=== PATIENT | female | born 1995 | race Hispanic/Latino ===

== ENCOUNTER 2020-11-15 21:55 | Emergency (ER) | payer OTHER ==
[~2020-11-15] VITALS: Ht 160 cm; Wt 92.6 kg
[2020-11-15 21:56] VITALS: BP 109/68
== END 2020-11-15 22:59 | disposition admitted as inpatient to this hospital (09) ==
LOC: M ED 21:55
DX: O9A.213 Injury, poisoning and certain other consequences of external causes complicating pregnancy, third trimester (principal); M54.50 Low back pain, unspecified; R10.2 Pelvic and perineal pain; W10.8XXA Fall (on) (from) other stairs and steps, initial encounter; Y92.009 Unspecified place in unspecified non-institutional (private) residence as the place of occurrence of the external cause; Y93.9 Activity, unspecified; Y99.9 Unspecified external cause status

== ENCOUNTER 2020-11-15 23:04 | Outpatient (CLI) | payer OTHER ==
[2020-11-15 23:37] VITALS: BP 100/62
[2020-11-16 00:17] LABS: HEMOGLOBIN 10.5 g/dl (12.0-15.5); MEAN CORPUSCULAR HEMOGLOBIN 25.4 pg (27.0-33.0); MEAN CORPUSCULAR HGB CONC 31.8 g/dl (32.0-36.5); MEAN CORPUSCULAR VOLUME 79.7 fl (80.0-96.0); PLATELET COUNT, AUTOMATED 303 10^3/uL (150-450); RED BLOOD COUNT 4.14 10^6/uL (4.00-5.40); WHITE BLOOD COUNT 8.4 10^3/uL (4.0-10.0)
--- NOTE | 2020-11-16 01:00 | IPNPDOC ---
Text Note Date of Service The patient was seen on 11/16/20. NOTE Vital Signs Label Value Date Time Patient Temperature 96.7 degrees F 11/15/202336 Temperature Source Temporal 11/15/202336 Pulse 83 11/15/202336 Respiratory Rate 18 bpm 11/15/202336 Blood Pressure Assessment 100/62 (75) 11/15/202336 Source Automatic Cuff (NIBP) Item Value Date Time White Blood Count 8.4 10^3/uL 11/15/20 2344 Red Blood Count 4.14 10^6/uL 11/15/20 2344 Hemoglobin 10.5 g/dl L 11/15/20 2344 Hematocrit 33.0 % L 11/15/20 2344 Mean Corpuscular Volume 79.7 fl L 11/15/20 2344 Mean Corpuscular Hemoglobin 25.4 pg L 11/15/20 2344 Mean Corpuscular Hemoglobin Concent 31.8 g/dl L 11/15/20 2344 Red Cell Distribution Width 13.2 % 11/15/20 2344 Platelet Count 303 10^3/uL 11/15/20 2344 11/16/2020 25 YO LMP 04/22/20 EDC BY EDC 01/27/21 AT 29 .5 WEEKS FELL DOWNSTAIRS CAME TO TRIAGE 5 HOURS LATER NO VAGINAL BLEEDING OR LOSS OF FLUID DECREASED MOVEMENT WHEN GOING TO BED. PAST HISTORY 11/01/2013 37 WEEKS 5LBS 2 OZ PTL AND DELIVERY MALE 05/13/201535 WEEKS 5 LBS 6 OZ PTL PTD FEMALE 08/01/2017 39 .3 WEEKS FEMALE 6 LBS 4 OZ PPROM PP DEPRESSION RISK FACTORS PP DEPRESSION BMI 37.O HX PTL X2 ASSESSMENT NO ACUTE DISTRESS SOFT ABDOMEN 4 QUADRANT BOWEL SOUNDS VERTEX ACTIVE FETUS CATEGORY 1 STRIP. US VERTEX CARDIAC ACTIVITY NOTED 4 LIMB MOVEMENT PLACENTA ANTERIOR 4 QUADRANT DOMINGA 13.6 SMALLEST POCKET 2.85 CM VERTICAL PLAN CBC KB PRECAUTIONS GIVEN DISCHARGE INSTRUCTIONS MAINTAIN APPOINTMENT AND CONTINUE MICHELLE . DISCHARGED UNDELIVERED VS,Fishbone, I+O VS, Fishbone, I+O Laboratory Tests 11/15/20 23:44 Casper Hudson MD Nov 16, 2020 00:55
== END 2020-11-16 00:50 | disposition home or self-care (01) ==
LOC: M LDO 23:04
PROVIDERS: ATTEND Obstetrics & Gynecology
DX: O9A.213 Injury, poisoning and certain other consequences of external causes complicating pregnancy, third trimester (principal); Z3A.29 29 weeks gestation of pregnancy; M54.50 Low back pain, unspecified; R10.2 Pelvic and perineal pain; W10.8XXA Fall (on) (from) other stairs and steps, initial encounter; Y92.009 Unspecified place in unspecified non-institutional (private) residence as the place of occurrence of the external cause; Y93.9 Activity, unspecified; Y99.9 Unspecified external cause status; O99.343 Other mental disorders complicating pregnancy, third trimester; F32.9 Major depressive disorder, single episode, unspecified; O99.213 Obesity complicating pregnancy, third trimester; E66.9 Obesity, unspecified; O26.893 Other specified pregnancy related conditions, third trimester
CPT/HCPCS: 36415; 59025; 85027; 85460; 99281; G0378; G0463

== ENCOUNTER 2020-12-14 17:27 | Outpatient (CLI) | payer OTHER ==
[~2020-12-14] VITALS: Ht 160 cm; Wt 92.3 kg
[2020-12-14 17:49] VITALS: BP 109/66
[2020-12-14] MEDS ORDERED: PRENTAB9 PO (18:26)
[2020-12-14] MEDS ORDERED: HOME MED LIST COMPLETE! XX SCH (18:30)
[2020-12-14] MEDS ORDERED: LR 1,000 ML IV ONE (19:20)
[2020-12-14] MEDS ORDERED: MAGNESIUM *L&D* 4GM/100ML BAG (40MG/ML) IV ONE (19:20)
--- NOTE | 2020-12-14 20:09 | IPNPDOC ---
Text Note Date of Service The patient was seen on 12/14/20. NOTE Vital Signs Label Value Date Time Patient Temperature 97.6 degrees F 12/14/201748 Temperature Source Temporal 12/14/201748 Pulse 83 12/14/201748 Respiratory Rate 18 bpm 12/14/201748 Blood Pressure Assessment 109/66 (80) 12/14/201748 Source Automatic Cuff (NIBP) Bedside Pulse Oximetry 98 % 12/14/201748 Item Value Date Time Oxygen Delivery Method Room Air 12/14/20174812/14/2020 25 y.o LMP 04/22/2020 WITH EDC 01/27/2021 BY EARLY US 11.6 WEEKS DONE 02/03/2021 COMES TO TRIAGE WITH COMPLAINTS X 24 HOURS CONTRACTIONS ARRIVED 3 HOURS AFTER TRIAGE CALL NO VAGINAL BLEEDING NO BLEEDING. CONTRACTIONS ERRATIC NOT PAINFUL . AT 33.3 WEEKS PAST HISTORY 11/01/2013 36 WEEKS MALE 5 LBS 2 OZ 07/2015 35 WEEKS 5 LBS 6 OZ FEMALE 08/01/2017 40 WEEKS PROM 6 LBS 4 OZ RISK FACTORS LATE ENTRY TO CARE 22 WEEKS PTD X 2 BMI 37.0 DEPRESSION EXAMINATION NO DISTRESS MONITOR SHOWS ERRATIC CONTRACTIONS MILD IN NATURE . PATIENT ON WEEKLY MICHELLE FROM 16 WEEKS ONWARD. CONSENTED STERILE EXAMINATION CERVIX CLOSED NO POOLING NO DISCHARGE NO BLEEDING FFN AND GBS DONE LATERAL ENRIQUEZ COLLAPSED TO MIDLINE . ULTRASOUND CONSENTED VERTEX LIMB MOVEMENT SPONTANOUS RESPIRATIONS DOMINGA X 3 POCKETS 3.57 CM, 3.71 CM, 3.85 CM TOTAL 11 .13 CM TRANS LABIAL CERVIX 2.52 CM NO FUNNELING PLAN IV HYDRATE MGSO4 NEURO STEROIDS FFN CBC BMP PATIENT EXPRESSED UNDERSTANDING VS,Fishbone, I+O VS, Fishbone, I+O Vital Signs Date Time Temp Pulse Resp B/P (MAP) Pulse Ox O2 Delivery O2 Flow Rate FiO2 12/14/20 17:49 97.6 83 18 109/66 (80) 98 Room Air Casper Hudson MD Dec 14, 2020 19:59
[2020-12-14 20:14] LABS: HEMATOCRIT 32.2 % (36.0-47.0); HEMOGLOBIN 10.2 g/dl (12.0-15.5); MEAN CORPUSCULAR HGB CONC 31.7 g/dl (32.0-36.5); MEAN CORPUSCULAR VOLUME 75.8 fl (80.0-96.0); PLATELET COUNT, AUTOMATED 286 10^3/uL (150-450); RED BLOOD COUNT 4.25 10^6/uL (4.00-5.40); WHITE BLOOD COUNT 8.4 10^3/uL (4.0-10.0)
[2020-12-14] MEDS: BETAMETHASONE SOLUSPAN 6MG/ML 5ML VIAL (J0702 PER 3MG) IM SCH (20:23)
[2020-12-14 20:41] VITALS: BP 111/59
[2020-12-14 20:46] LABS: BLOOD UREA NITROGEN 6 MG/DL (7-18); CARBON DIOXIDE LEVEL 18 MEQ/L (21-32); CHLORIDE LEVEL 109 MEQ/L (98-107); CREATININE FOR GFR 0.52 MG/DL (0.55-1.30); GLOMERULAR FILTRATION RATE > 60.0 (>60); GLUCOSE, FASTING 68 MG/DL (70-100); SODIUM LEVEL 138 MEQ/L (136-145)
[2020-12-14] MEDS: MAG Sulf (OBGYN) 20GM/500ML 20,000 MG in IV 1 EA IV SCH (21:08)
[2020-12-14 21:12] VITALS: BP 117/68
[2020-12-14 21:36] VITALS: BP 114/70
[2020-12-14 22:36] VITALS: BP 101/61
[2020-12-14 23:37] VITALS: BP 96/63
[2020-12-15] VITALS (12 sets, daily range): BP systolic 82–107; BP diastolic 47–60
[2020-12-15] MEDS: MAG Sulf (OBGYN) 20GM/500ML 20,000 MG in IV 1 EA IV SCH (06:13)
--- NOTE | 2020-12-15 06:34 | IPNPDOC ---
Text Note Date of Service Item Value Date Time Fibronectin NEGATIVE 12/14/201934 Item Value Date Time Urine Color YELLOW 12/14/202140 Urine Appearance CLOUDY H 12/14/202140 Urine pH 6.0 UNITS 12/14/202140 Urine Specific [place] 1.015 12/14/202140 Urine Protein NEGATIVE mg/dL 12/14/202140 Urine Glucose (UA) NEGATIVE mg/dL 12/14/202140 Urine Ketones 2+ mg/dL H 12/14/202140 Urine Blood NEGATIVE 12/14/202140 Urine Nitrite NEGATIVE 12/14/202140 Urine Bilirubin NEGATIVE 12/14/202140 Urine Urobilinogen 0.2 mg/dL 12/14/202140 Urine Leukocyte Esterase NEGATIVE 12/14/202140 Urine WBC (Auto) 2 /HPF 12/14/202140 Urine RBC (Auto) 1 /HPF 12/14/202140 Urine Hyaline Casts (Auto) 0 /LPF 12/14/202140 Urine Bacteria (Auto) 1+ H 12/14/202140 Urine Squamous Epithelial Cells 5 /HPF 12/14/202140 Urine Mucus (Auto) SMALL 12/14/202140 Item Value Date Time Sodium Level 138 MEQ/L 12/14/201934 Potassium Level 4.0 MEQ/L 12/14/201934 Chloride Level 109 MEQ/L H 12/14/201934 Carbon Dioxide Level 18 MEQ/L L 12/14/201934 Anion Gap 11 MEQ/L 12/14/201934 Blood Urea Nitrogen 6 MG/DL L 12/14/201934 Creatinine 0.52 MG/DL L 12/14/201934 Glomerular Filtration Rate > 60.0 12/14/201934 Fasting Glucose 68 MG/DL L 12/14/201934 Item Value Date Time White Blood Count 8.4 10^3/uL 12/14/201934 Red Blood Count 4.25 10^6/uL 12/14/201934 Hemoglobin 10.2 g/dl L 12/14/201934 Hematocrit 32.2 % L 12/14/201934 Mean Corpuscular Volume 75.8 fl L 12/14/201934 Mean Corpuscular Hemoglobin 24.0 pg L 11/8/21 1935 Mean Corpuscular Hemoglobin Concent 31.7 g/dl L 12/14/201934 Red Cell Distribution Width 13.2 % 12/14/201934 Platelet Count 286 10^3/uL 12/14/201934 The patient was seen on 12/15/20. NOTE Vital Signs Label Value Date Time Pulse 93 12/15/20 0556 Blood Pressure Assessment 90/53 (65) 12/15/20 0556 Source Automatic Cuff (NIBP) Pulse 104 12/15/20 0456 Blood Pressure Assessment 99/59 (72) 12/15/20 0456 Source Automatic Cuff (NIBP) Pulse 93 12/15/20 0356 Blood Pressure Assessment 92/54 (67) 12/15/20 0356 Source Automatic Cuff (NIBP) Pulse 105 12/15/20 0256 Blood Pressure Assessment 96/52 (67) 12/15/20 0256 Source Automatic Cuff (NIBP) Pulse 96 12/15/20 0156 Blood Pressure Assessment 89/50 (63) 12/15/20 0156 Source Automatic Cuff (NIBP) Pulse 93 12/15/20 0112 Blood Pressure Assessment 107/60 (76) 12/15/20 0112 Source Automatic Cuff (NIBP) 12/15/20 REVIEW PATIENT PROGRESS 12 HOURS AFTER FIRST ASSESSMENT. CONTRACTIONS RESOLVED CATAGORY 1 STRIP STEROID COMPLETE AFTER 0800 PLANNED APPOINTMENT AT [facility] ENCOURAGED REVIEWED [facility] BLEEDING . VS,Fishbone, I+O VS, Fishbone, I+O Laboratory Tests 12/14/20 19:35 Vital Signs Date Time Temp Pulse Resp B/P (MAP) Pulse Ox O2 Delivery O2 Flow Rate FiO2 12/15/20 05:56 93 90/53 (65) 12/14/20 17:49 97.6 18 98 Room Air I&O- Last 24 Hours up to 6 AM 12/15/20 06:00 Intake Total 350 ml Output Total 450 ml Balance -100 ml Casper Hudson MD Dec 15, 2020 06:28
[2020-12-15] MEDS: BETAMETHASONE SOLUSPAN 6MG/ML 5ML VIAL (J0702 PER 3MG) IM SCH (08:31)
== END 2020-12-15 09:25 | disposition home or self-care (01) ==
LOC: M LDO 17:27
PROVIDERS: ATTEND Obstetrics & Gynecology
DX: O60.03 Preterm labor without delivery, third trimester (principal); Z3A.33 33 weeks gestation of pregnancy
CPT/HCPCS: 59025; 80048; 81001; 82731; 85027; 87081; 96372; G0378; G0463; J0702; J3475

== ENCOUNTER 2021-01-06 00:24 | Outpatient (CLI) | payer OTHER ==
[~2021-01-06] VITALS: Ht 160 cm; Wt 94.2 kg
[~2021-01-06 00:24] MED LIST: PRENTAB9 PO
[2021-01-06 00:57] VITALS: BP 102/68
[2021-01-06] MEDS ORDERED: HOME MED LIST COMPLETE! XX SCH (01:30)
[2021-01-06] MEDS: FLUCONAZOLE 50MG TABLET PO ONE (02:00)
== END 2021-01-06 01:45 | disposition home or self-care (01) ==
LOC: M LDO 00:24
PROVIDERS: ATTEND Obstetrics & Gynecology
DX: O23.593 Infection of other part of genital tract in pregnancy, third trimester (principal); B37.9 Candidiasis, unspecified; Z3A.37 37 weeks gestation of pregnancy
CPT/HCPCS: 59025; 76815; G0378; G0463

== ENCOUNTER 2021-01-14 13:58 | Inpatient (IN) | payer OTHER ==
[2021-01-14] VITALS (7 sets, daily range): BP systolic 103–122; BP diastolic 53–72
[~2021-01-14] VITALS: Ht 160 cm; Wt 97.4 kg
[2021-01-14] MEDS ORDERED: METHYLERGONOVINE MALEATE 0.2 MG/ML VIAL (J2210) IM PRN (14:15)
[2021-01-14] MEDS ORDERED: OXYTOCIN DRIP 30 UNITS in IV 1 EA IV PRN ×4 (14:15)
[2021-01-14] MEDS ORDERED: LIDOCAINE 1% MDV 20ML VIAL INFIL PRN (14:15)
[2021-01-14] MEDS ORDERED: CARBOPROST TROMETHAMINE 250 MCG/ML AMP IM PRN (14:15)
[2021-01-14] MEDS ORDERED: TRANEXAMIC ACID INJection 1,000 MG in NS 100 ML IV PRN (14:15)
[2021-01-14] MEDS ORDERED: FERR325T3 PO (14:28)
[2021-01-14 15:19] LABS: HEMATOCRIT 34.9 % (36.0-47.0); HEMOGLOBIN 10.7 g/dl (12.0-15.5); MEAN CORPUSCULAR HEMOGLOBIN 22.6 pg (27.0-33.0); MEAN CORPUSCULAR HGB CONC 30.7 g/dl (32.0-36.5); MEAN CORPUSCULAR VOLUME 73.8 fl (80.0-96.0); PLATELET COUNT, AUTOMATED 290 10^3/uL (150-450); RED BLOOD COUNT 4.73 10^6/uL (4.00-5.40); WHITE BLOOD COUNT 7.6 10^3/uL (4.0-10.0)
[2021-01-14] MEDS ORDERED: HOME MED LIST COMPLETE! XX SCH (15:25)
[2021-01-14] MEDS ORDERED: miSOPROStol 50MCG 1/2 TABLET SL ONE (17:05)
--- NOTE | 2021-01-14 17:47 | HPEPDOC ---
Obstetrical History & Physical General Date of Admission Jan 14, 2021 at 13:58 History of Present Illness Chief Complaint: Patient is a 25yo at 38+1 wks gestation who presents to L&D after being seen in the clinic for APFT due to obesity. Variable decelerations and tachycardia were noted on the monitor while doing her NST in the clinic. Patient presents: with spouse HPI: Denies any leaking of fluid, vaginal bleeding. Reporting good movement. Some cramping contractions. Denies any headaches, nausea, vomiting, RUQ pain. Denies any dysuria, vaginal discharge, vaginal itching/burning. ROS: GEN: Feeling Fine. Denies fevers, chills. Denies Fatigue. Eyes: Denies change in vision/ scotomata/blurred vision. Resp: Denies SOB/HERNANDEZ, cough, or wheezing. Card: Denies palpitations or Chest pain. GI: Denies diarrhea, constipation. No abdominal pain. Denies heartburn. : Denies foul smelling vaginal discharge. Denies flank pain. Lymph: Denies edema to upper or lower extremities bilaterally. Skin: Reports bruising to legs, but states this started happening after her Nexplanon was removed. ALLERGIES: No allergic/immunologic symptoms. NKDA- Reviewed Dating Final EDC: Jan 27, 2021 Final EDC for Daily Update: Jan 27, 2021 Final EDC by: LMP LMP: Apr 22, 2020 EGA at Admission: 38.1 Antepartum Course Diagnos(e)s 1. Hx delivery x3, doing weekly Lydia 2. Obesity, BMI 35.4 3. Hx depression/PPD, plan 2wk PP f/u 4. Transfer in at 22 weeks. 5. Anemia 6. Varicella Non-Immune 7. Urinary Tract infection 01/08/22 Height (inches): 63 Pre- weight (lbs.): 200 Admission Weight (lbs.): 204 Change in Weight (lbs.): 4 Past Medical History Past Obstetrical History : Past Obstetrical History: Multigravida (1.2013 36.4 5#2oz 2.2015 35.5 5#6oz 3. 2017 39.3 6#4oz) Past Medical History Medical History Hx depression Surgical History: [place] teeth Family History Significant Family History: No pertinent family hx Social History Marital Status: Family situation: Spouse/partner home Psychosocial History: Depression * Smoker: non-smoker Alcohol: Denies Drugs: denies Abuse Violence Screening Have you been hit/kicked/slapp: No Have you been sexually assault: No Imunizations Tdap status: current Influenza Status: current Allergies Coded Allergies: No Known Allergies (Unverified , 01/14/21) Medications Scheduled No.137/Iron/Folic Acd ( Vitamin Tablet) 1 Each Tablet, 1 TAB PO DAILY Miscellaneous Medications Ferrous Sulfate (Ferrous Sulfate) 325 Mg Tablet.dr, 325 MG PO Physical Examination Physical Examination Exam: General: Well-appearing, in no acute distress. PSYCH: Well groomed. Appropriate affect, normal mood. Conversed easily. Neuro: Oriented to time, place, and person. RESP: Lungs clear to auscultation bilaterally without wheezes, rales or rhonchi. Unlabored breathing. CV: Normal RRR, no murmur, c/w normal . No edema to bilateral upper and lower extremities. Negative calf tenderness. ABD: Gravid. Soft, non-tender. BS normal x4 quad. Uterus non-tender. MSK: Normal mvmt all extremities. Steady gait. Mariela from a seated position without assistance. SKIN: Dry, intact. Genitalia: External Genitalia showed no abnormalities, without lesions. Obstetrical: Clinical Pelvimetry: Pelvis adequate, proven to 6#4oz FHR: Initially baseline 140 with moderate variability. 1 late appearing decel when first on monitor on L&D. Since that time, baseline 125 with moderate variability, accelerations noted, no decelerations. Contractions irregular. VTX by Luz EFW: 3450gm. SVE: FT/25/high. Posterior/medium Fluid Jet Cutter Operator present for exam: Narayan Altamirano RN Limited Trans-Abdominal Ultrasound Performed Today: Presentation: Vertex Placenta location: anterior Movement Present Heart Rate Present Amniotic fluid: MVP 5.02cm Vital Signs/I&O Vital Signs Date Time Temp Pulse Resp B/P (MAP) Pulse Ox O2 Delivery O2 Flow Rate FiO2 01/14/21 14:17 96.9 85 16 121/70 (87) Laboratory Data [facility] Laboratory Tests 2 01/14/21 14:20: Serology Scanned Report Hepatitis B Testing 01/14/21 14:44: Nucleated Red Blood Cells % (auto) 0.0, Syphilis Serology NONREACTIVE 01/14/21 14:56: Coronavirus (COVID-19)(PCR) NEGATIVE CBC/BMP Laboratory Tests 01/14/21 14:44 Pertinent Laboratoy Data Blood Type: A+ RBC Antibody Screen: Negative HIV: Negative Hepatitis B: Negative Rapid Plasma Reagin: Nonreactive Rubella: Immune Varicella: Nonreactive Chlamydia/Gonorrhea: Negative Group B Streptococcus: Negative Quad Screen Test: Negative Cystic Fibrosis: Negative Glucose Tolerance Test: 100 Anatomy Ultrasound Ultrasound Date: Oct 15, 2020 Placenta Location: Anterior Normal Anatomy: Yes Assessment/Plan Assessment 25yo at 38+1 wks gestation presents to L&D from clinic for FHR cat 2 tracing during APFT (variables with tachycardia). Admit for NRFHR. A positive/GBS negative/RI Varicella Non-Immune: vaccine VSS Benign physical exam FHR Cat 2 tracing with one late noted on admission. Since then overall reassuring. VTX by Tr & ultrasound EFW: 3450gm by Tr and recent growth US. SVE: FT/25/high, posterior/medium Urinary tract infection from last week, not yet treated. E coli. Plan Admit, labs, IV, consent completed Address pain needs as the arise, patient plans IV pain medication for pain management in labor Continuous EFM 3GM fosfomycin now for UTI (avoid macrobid and Augmentin at term). Plan to start IOL process with buccal cytotec 50mcg. Plan to place DLFB when able. Anticipate Consult physician service as needed Labor and Delivery Counseling Reviewed with patient the following with the patient in regards to vaginal delivery (Deliver infant through the vaginal canal): The purpose of the procedure is to deliver a baby. There may be maternal risks involved with vaginal delivery to include but not limited to: -Use of the medications to induce or augment labor with the risks of uterine rupture, infection, heart rate abnormalities, hemorrhage, and/or need for emergency delivery. -Artificial rupture of the amniotic sac with the risk of cord prolapse -Internal monitors with the associate risks of infection or fever -Infection, which is fever during the labor process -IV pain management, anesthesia as indicated and associated risks with those medications -Vaginal lacerations and repair, episiotomy and repair when needed -Injury to the baby or mother at the time of delivery, -Maternal organ damage, maternal or infant -Prolonged hospitalized -Possible painful intercourse, chronic pelvic pain In addition to these maternal risks, there may be other possible risks involved in this procedure including, but not limited to: bleeding with the possible need for blood transfusion. Risks of blood transfusion can include but are not cristina ited to: possible transfusion reaction, virus transmission. Patient consents to blood transfusion if necessary. The likelihood of a successful outcome for this procedure is: Good Reviewed with patient the generally recognized and accepted practical alternatives to this procedure and the accompanying risks are: -Possible emergent Section with its risk of damage to internal organs and necessary repairs, laceration to the baby and necessary repairs -Possible operative vaginal delivery to include forceps or vacuum assist, resulting in: maternal tissue damage, maternal urinary or bowel incontinence, baby bruising, hematoma, scalp swelling, scalp laceration, skull fracture, facial paralysis and its repair Reviewed with patient the practice of medicine is not an exact science and that no guarantees can be made to the patient concerning the results of this procedure, nor guarantees to the effect this procedure will have on underlying medical issues. Reviewed with patient that during the course of labor, it may be necessary or appropriate to perform additional procedure(s) which were unforeseen or not known to be needed at the time of admission. Ms. Thomson appears to understand these risks and elects to proceed with induction of labor today. ELVI EDWARDS CNM Jan 14, 2021 17:47
[2021-01-14] MEDS ORDERED: FOSFOMYCIN TROMETHAMINE 3 GM POWDER PACKET (MONUROL) PO ONE (20:00)
[2021-01-14] MEDS: miSOPROStol 25MCG 1/4 TABLET SL SCH (22:27)
--- NOTE | 2021-01-14 22:53 | IPNPDOC ---
Obstetrical Progress Note Date of Service Jan 14, 2021 Subjective Feeling some cramping contractions. Spouse at for support. Objective Vital Signs Date Time Temp Pulse Resp B/P (MAP) Pulse Ox O2 Delivery O2 Flow Rate FiO2 01/14/21 20:40 96 103/53 (70) 01/14/21 19:13 97.4 17 Assessment Heart Rate (FHR): 135 Variability: Moderate Accelerations: Positive Decelerations: None Heart Rate Tracing: Category I Tocometer Contractions: Yes Frequency: every 3-7 min. Assessment and Plan Additional Comments 25yo at 38+1 wks gestation admitted today for FHR cat 2 tracing during APFT (variables with tachycardia). 1 Late decel noted on admission. A positive/GBS negative/RI Varicella Non-Immune: vaccine VSS FHR Cat 1 tracing SVE: FT/25/high, posterior/medium. No change since last exam. Address pain needs as the arise, patient plans IV pain medication for pain management in labor Continuous EFM Still unable to place double lumen merida bulb. Give buccal cytotec 25mcg Q4hr. Plan to place DLFB when able. Anticipate Consult physician service as needed ELVI EDWARDS CNM Jan 14, 2021 22:53
[2021-01-14] MEDS ORDERED: LACTATED RINGER'S 1000 ML IV STA (23:16)
[2021-01-15] VITALS (23 sets, daily range): BP systolic 98–129; BP diastolic 57–76
[2021-01-15] MEDS: LR 1,000 ML IV SCH ×2 (01:44→09:48)
--- NOTE | 2021-01-15 05:10 | IPNPDOC ---
Obstetrical Progress Note Date of Service Jan 15, 2021 Subjective Sleeping. Spouse at Bedside Objective Vital Signs Date Time Temp Pulse Resp B/P (MAP) Pulse Ox O2 Delivery O2 Flow Rate FiO2 01/15/21 01:28 79 16 116/68 (84) 01/14/21 23:15 98.1 Assessment Heart Rate (FHR): 130 Variability: Moderate Accelerations: Positive Decelerations: None Heart Rate Tracing: Category I Tocometer Frequency: every 2-5 min. Strength: palpated as mild Assessment and Plan Additional Comments 25yo at 38+2 wks gestation admitted yesterday for FHR cat 2 tracing during APFT (variables with tachycardia). 1 Late decel noted on admission. tachycardia again just prior to midnight. A positive/GBS negative/RI Varicella Non-Immune: vaccine VSS FHR Cat 1 tracing currently and reassuring. Last cat 2 tracing just prior to midnight with variables and tachycardia. Resolved after fluid bolus. 0505 SVE: 1/25/high, midposition and soft, however unable to place merida bulb at this time. Patient has received cytotec 50, 25, 25. Plan additional dose at 0700 and reassess for ability to place merida baloon. Address pain needs as the arise, patient plans IV pain medication for pain management in labor Continuous EFM Anticipate Consult physician service as needed ELVI EDWARDS CNM Jan 15, 2021 05:10
[2021-01-15] MEDS ORDERED: miSOPROStol 25MCG 1/4 TABLET SL ONE (07:15)
[2021-01-15] MEDS: miSOPROStol 25MCG 1/4 TABLET SL SCH (07:26)
[2021-01-15] MEDS ORDERED: PROMETHAZINE INJ 25 MG/ML VIAL (J2550) IV ONE (12:40)
[2021-01-15] MEDS ORDERED: BUTORPHANOL 2 MG/ML INJ (J0595) IV ONE (12:40)
[2021-01-15] MEDS ORDERED: OXYTOCIN DRIP 30 UNITS in IV 1 EA IV SCH ×5 (14:00→15:40)
[2021-01-15] MEDS ORDERED: OXYTOCIN INJ 10 UNITS/ML VIAL (J2590) IV ONE ×2 (14:40→15:40)
[2021-01-15] MEDS ORDERED: OXYTOCIN INJ 10 UNITS/ML VIAL (J2590) As Ordered ONE (14:42)
[2021-01-15 15:08] LABS: CORD GAS ABE V -2.8; CORD GAS HCO3 V 21.7 MEQ/L; CORD GAS O2 SAT V 81.7 %; CORD GAS PH V 7.387 UNITS; CORD GAS SBC V 21.8 MEQ/L; CORD GAS TCO2 V 22.9 MEQ/L
[2021-01-15 15:10] LABS: CORD GAS ABE A -1.1; CORD GAS HCO3 A 25.1 MEQ/L; CORD GAS O2 SAT A 59.8 %; CORD GAS PCO2 A 48.1 mmHg; CORD GAS PH A 7.336 UNITS; CORD GAS PO2 A 24.5 mmHg; CORD GAS SBC A 22.7 MEQ/L; CORD GAS TCO2 A 26.6 MEQ/L
[2021-01-15] MEDS ORDERED: MEASLES,MUMPS,RUBELLA VACCINE INJ (MMR-II) (90707) SC SCH (15:40)
[2021-01-15] MEDS ORDERED: IBUPROFEN 600MG TAB PO PRN (15:40)
[2021-01-15] MEDS ORDERED: ANUSOL HC CREAM 30GM TOP PRN (15:40)
[2021-01-15] MEDS ORDERED: RHOGAM 300 MCG (1500 IU) INJ (J2790) IM SCH (15:40)
[2021-01-15] MEDS ORDERED: MOM 30ML SUSPENSION UDC PO PRN (15:40)
[2021-01-15] MEDS ORDERED: METHYLERGONOVINE MALEATE 0.2 MG TAB PO PRN (15:40)
[2021-01-15] MEDS ORDERED: DIBUCAINE 1% OINTMENT 30GM TOP PRN (15:40)
[2021-01-15] MEDS ORDERED: LR 1,000 ML IV SCH (15:40)
[2021-01-15] MEDS ORDERED: DOCUSATE SODIUM 100MG CAPSULE PO PRN (15:40)
[2021-01-15] MEDS ORDERED: ACETAMINOPHEN TAB 650MG DOSE (2X325MG) PO PRN (15:40)
--- NOTE | 2021-01-15 17:06 | DN ---
DELIVERY NOTE DATE OF DELIVERY: 01/15/2021 A 25-year-old 4, para 3, admitted for induction of labor because of category 2 strip at 38 and 1 weeks of gestation. With no anesthesia, spontaneous vaginal delivery of a live- male , 7 pounds 1 ounce after spontaneous rupture of membranes. A moderate amount of fluid, 3190 grams, scores of 9 and 9 at one and five minutes, respectively. Arterial pH 7.33, base excess -1.1, venous pH 7.38, base excess -2.8. Placenta delivered spontaneously thereafter, 3 vessels in the cord, membranes and tissues intact. Anterior, posterior, and lateral hand are complete. She had a small first-degree blood vessel in the introital area that was oversewn with a 2-0 Vicryl on a [id number]. Risk factors are body mass index (BMI) of 35.4, history of depression, and gestational anemia. The anterior, posterior, and lateral hand were complete. Cervix was closed. Sphincter was tight. Uterus contracted well down on Pitocin. Patient and baby tolerating procedure well. Estimated blood loss 200 mL.
[2021-01-15] MEDS: ACETAMINOPHEN 500 MG TAB PO PRN (22:43)
[2021-01-16 06:00] VITALS: BP 122/81
[2021-01-16 07:25] LABS: HEMOGLOBIN 10.6 g/dl (12.0-15.5); MEAN CORPUSCULAR HGB CONC 31.2 g/dl (32.0-36.5); MEAN CORPUSCULAR VOLUME 73.9 fl (80.0-96.0); PLATELET COUNT, AUTOMATED 279 10^3/uL (150-450); WHITE BLOOD COUNT 12.4 10^3/uL (4.0-10.0)
[2021-01-16] MEDS: PRENATAL VITAMINS CHEWABLE TABLET PO SCH (10:02)
[2021-01-16] MEDS: ACETAMINOPHEN 500 MG TAB PO PRN (14:14)
[2021-01-16 20:20] VITALS: BP 122/81
[2021-01-17 06:06] VITALS: BP 121/74
--- NOTE | 2021-01-17 08:25 | DS.PDOC ---
Discharge Summary General Date of Admission Jan 14, 2021 at 13:58 Date of Discharge [id number] Discharge Summary PROCEDURES PERFORMED DURING STAY: . ADMITTING DIAGNOSES: 1. IOL. DISCHARGE DIAGNOSES: 1. Stable day 2 PP . COMPLICATIONS/CHIEF COMPLAINT: Iol Category 2 Tracing. HISTORY OF PRESENT ILLNESS: IOL at 38wks for Cat II FHRT. HOSPITAL COURSE: uncomplicated. DISCHARGE MEDICATIONS: Please see below. ALLERGIES: Please see below. PHYSICAL EXAMINATION ON DISCHARGE: VITAL SIGNS: Please see below. GENERAL: WNL HEENT: WNL NECK: WNL CARDIOVASCULAR EXAMINATION: RRR RESPIRATORY EXAMINATION: CTA ABDOMINAL EXAMINATION: soft, non tender, fundus @u-1, scant rubra lochia EXTREMITIES: WNL SKIN: intact PSYCHIATRIC EXAMINATION: WNL, f/u in clinic 2wk PP for history of depression LABORATORY DATA: Please see below. IMAGING: n/a PROGNOSIS: good ACTIVITY: As tolerated. DIET: regular DISCHARGE PLAN: to home today DISPOSITION: home. DISCHARGE INSTRUCTIONS: 1. Return precuations 2. signs of depression 3. 4. PP 2 and 6 wk f/u 5. PP BCM IUD ITEMS TO FOLLOWUP ON ON OUTPATIENT: 1. depression 2. control DISCHARGE CONDITION: [Stable]. TIME SPENT ON DISCHARGE: 15 minutes. Vital Signs/I&Os Vital Signs Date Time Temp Pulse Resp B/P (MAP) Pulse Ox O2 Delivery O2 Flow Rate FiO2 01/17/21 06:06 97.0 63 18 121/74 (90) 01/16/21 20:20 99 Room Air Discharge Medications Scheduled No.137/Iron/Folic Acd ( Vitamin Tablet) 1 Each Tablet, 1 TAB PO DAILY, (Reported) Miscellaneous Medications Ferrous Sulfate (Ferrous Sulfate) 325 Mg Tablet., 325 MG PO, (Reported) Allergies Coded Allergies: No Known Allergies (Unverified , 01/14/21) BARBARA VICKERS CNM Jan 17, 2021 08:25
[2021-01-17] MEDS: PRENATAL VITAMINS CHEWABLE TABLET PO SCH (09:00)
== END 2021-01-17 14:15 | disposition home or self-care (01) | DRG 807 ==
LOC: M LDI 13:58 → M OBS 01-15 18:28
PROVIDERS: ADMIT Advanced Practice Midwife; ATTEND Obstetrics & Gynecology
PROC: 3E0P7GC Introduction of Other Therapeutic Substance into Female Reproductive, Via Natural or Artificial Opening (ICD-10-PCS; 2021-01-14)
PROC: 10E0XZZ Delivery of Products of Conception, External Approach (ICD-10-PCS; principal; 2021-01-15)
PROC: 0HQ9XZZ Repair Perineum Skin, External Approach (ICD-10-PCS; 2021-01-15)
DX: O99.214 Obesity complicating childbirth (principal); Z37.0 Single live birth; E66.9 Obesity, unspecified; Z3A.38 38 weeks gestation of pregnancy; Z68.35 Body mass index [BMI] 35.0-35.9, adult; O76 Abnormality in fetal heart rate and rhythm complicating labor and delivery; O70.0 First degree perineal laceration during delivery

== ENCOUNTER 2023-01-30 17:24 | Emergency (ER) | payer OTHER ==
[~2023-01-30] VITALS: Ht 157.5 cm; Wt 91.4 kg
[2023-01-30 17:24] VITALS: BP 121/83; TEMP 97.5; O2SAT 98
[~2023-01-30 17:24] MED LIST changes: +FERR325T3 PO
[2023-01-30] MEDS ORDERED: VALA1TAB5 PO (20:06)
[2023-01-30] MEDS ORDERED: SUCR1ORA2 PO (20:08)
== END 2023-01-30 20:18 | disposition home or self-care (01) ==
LOC: M ED 17:24
DX: B00.2 Herpesviral gingivostomatitis and pharyngotonsillitis (principal); Z79.810 Long term (current) use of selective estrogen receptor modulators (SERMs); Z79.899 Other long term (current) drug therapy

== ENCOUNTER 2023-05-17 00:01 | Observation (INO) | payer OTHER ==
[~2023-05-17] VITALS: Ht 157.5 cm; Wt 91.8 kg
[~2023-05-17 00:01] MED LIST changes: +SUCR1ORA2 PO; +VALA1TAB5 PO
[2023-05-17] MEDS ORDERED: HYDR1CRE30 TOP (00:15)
[2023-05-17] MEDS: dexAMETHasone 20MG/5ML VIAL IV ONE (01:29)
[2023-05-17] MEDS: KETOROLAC 30 MG/ML 1ML VIAL IV ONE (01:31)
[2023-05-17] MEDS: NS 1,000 ML IV ONE (01:32)
[2023-05-17 01:33] LABS: BASO # 0.1 10^3/uL (0.0-0.2); BASO % 0.3 % (0.0-1.0); EOS # 0.1 10^3/uL (0.0-0.5); EOS % 0.7 % (0.0-3.0); HEMATOCRIT 44.6 % (36.0-47.0); HEMOGLOBIN 14.5 g/dl (12.0-15.5); LYMPH # 2.6 10^3/uL (1.5-5.0); LYMPH % 16.6 % (24.0-44.0); MEAN CORPUSCULAR HEMOGLOBIN 26.1 pg (27.0-33.0); MEAN CORPUSCULAR HGB CONC 32.5 g/dl (32.0-36.5); MEAN CORPUSCULAR VOLUME 80.2 fl (80.0-96.0); MONO # 0.8 10^3/uL (0.0-0.8); MONO % 5.3 % (2.0-8.0); NEUTROPHILS # 12.1 10^3/uL (1.5-8.5); NEUTROPHILS % 76.7 % (36.0-66.0); PLATELET COUNT, AUTOMATED 340 10^3/uL (150-450); RED BLOOD COUNT 5.56 10^6/uL (4.00-5.40); WHITE BLOOD COUNT 15.8 10^3/uL (4.0-10.0)
[2023-05-17] MEDS: AMPICILLIN SOD/SULBACTAM SOD 3 GM in D5W MINI-BAG PLUS 100 ML IV ONE (01:33)
[2023-05-17] MEDS ORDERED: AMOX875T2 PO (01:45)
[2023-05-17] MEDS ORDERED: IBUP-1022 PO (01:45)
[2023-05-17 01:57] LABS: HCG, SERUM QUALITATIVE NEGATIVE (NEGATIVE)
[2023-05-17] MEDS ORDERED: ISOVUE-370 76% 100ML VIAL As Ordered ONE (02:25)
[2023-05-17] MEDS ORDERED: ACETAMINOPHEN 325MG/10.15ML UDC PO PRN (05:10)
[2023-05-17] MEDS ORDERED: MAALOX 30 ML SUSP *UDC PO PRN (05:10)
[2023-05-17] MEDS ORDERED: HOME MED LIST COMPLETE! XX SCH (05:25)
[2023-05-17] MEDS ORDERED: SFHHYD1CR EXT (05:25)
[2023-05-17] MEDS ORDERED: NS 1,000 ML IV SCH (05:30)
[2023-05-17 07:51] LABS: BASO % 0.2 % (0.0-1.0); HEMATOCRIT 43.7 % (36.0-47.0); HEMOGLOBIN 14.1 g/dl (12.0-15.5); LYMPH # 1.6 10^3/uL (1.5-5.0); LYMPH % 10.8 % (24.0-44.0); MEAN CORPUSCULAR HGB CONC 32.3 g/dl (32.0-36.5); MEAN CORPUSCULAR VOLUME 80.5 fl (80.0-96.0); MONO # 0.1 10^3/uL (0.0-0.8); MONO % 0.9 % (2.0-8.0); NEUTROPHILS # 12.6 10^3/uL (1.5-8.5); NEUTROPHILS % 87.6 % (36.0-66.0); PLATELET COUNT, AUTOMATED 340 10^3/uL (150-450); RED BLOOD COUNT 5.43 10^6/uL (4.00-5.40); WHITE BLOOD COUNT 14.4 10^3/uL (4.0-10.0)
[2023-05-17 08:20] LABS: BLOOD UREA NITROGEN 8 MG/DL (9-23); CALCIUM LEVEL 9.3 MG/DL (8.5-10.1); CARBON DIOXIDE LEVEL 24 MMOL/L (20-31); CHLORIDE LEVEL 106 MMOL/L (98-107); CREATININE FOR GFR 0.55 MG/DL (0.55-1.30); GLOMERULAR FILTRATION RATE > 60.0 (>60); GLUCOSE, FASTING 139 MG/DL (60-100); SODIUM LEVEL 138 MMOL/L (136-145)
[2023-05-17 08:45] VITALS: BP 124/81; TEMP 97.6; O2SAT 99
[2023-05-17] MEDS: AMPICILLIN SOD/SULBACTAM SOD 3 GM in D5W MINI-BAG PLUS 100 ML IV SCH (09:02)
[2023-05-17] MEDS: KETOROLAC 30 MG/ML 1ML VIAL IV PRN (10:50)
[2023-05-17 12:00] VITALS: BP 126/75; TEMP 97.8; O2SAT 99
[2023-05-17 16:00] VITALS: BP 126/74; TEMP 97.3; O2SAT 97
[2023-05-17 20:00] VITALS: BP 130/74; TEMP 97; O2SAT 99
[2023-05-18 02:00] VITALS: BP 121/71; TEMP 96.9; O2SAT 99
[2023-05-18 07:42] LABS: HEMATOCRIT 44.6 % (36.0-47.0); HEMOGLOBIN 14.1 g/dl (12.0-15.5); MEAN CORPUSCULAR HEMOGLOBIN 25.7 pg (27.0-33.0); MEAN CORPUSCULAR HGB CONC 31.6 g/dl (32.0-36.5); MEAN CORPUSCULAR VOLUME 81.2 fl (80.0-96.0); PLATELET COUNT, AUTOMATED 343 10^3/uL (150-450); RED BLOOD COUNT 5.49 10^6/uL (4.00-5.40); WHITE BLOOD COUNT 22.2 10^3/uL (4.0-10.0)
[2023-05-18 08:19] LABS: PROCALCITONIN <0.04 ng/ml
[2023-05-18 08:30] VITALS: BP 129/78; TEMP 96.9; O2SAT 98
[2023-05-18 08:33] LABS: ALBUMIN 2.9 G/DL (3.2-5.2); ALKALINE PHOSPHATASE 110 U/L (46-116); ALT/SGPT 40 U/L (7.0-40); AST/SGOT 20 U/L (<34); BILIRUBIN,TOTAL < 0.2 MG/DL (0.3-1.2); BLOOD UREA NITROGEN 10 MG/DL (9-23); CALCIUM LEVEL 8.7 MG/DL (8.5-10.1); CARBON DIOXIDE LEVEL 26 MMOL/L (20-31); CHLORIDE LEVEL 109 MMOL/L (98-107); CREATININE FOR GFR 0.56 MG/DL (0.55-1.30); GLOMERULAR FILTRATION RATE > 60.0 (>60); GLUCOSE, FASTING 129 MG/DL (60-100); POTASSIUM SERUM 4.9 MMOL/L (3.5-5.1); SODIUM LEVEL 142 MMOL/L (136-145); TOTAL PROTEIN 7.3 G/DL (5.7-8.2)
[2023-05-18] MEDS ORDERED: CLEO300C2 PO (11:49)
[2023-05-18] MEDS ORDERED: PROBCAP14 PO (11:49)
[2023-05-18 11:50] VITALS: BP 135/87; TEMP 97.2; O2SAT 99
[2023-05-18 13:14] VITALS: TEMP 97.3
== END 2023-05-18 15:55 | disposition home or self-care (01) ==
LOC: M ED 00:01 → M ED INP 00:02 → M PED 08:30
PROVIDERS: ADMIT Family Medicine; ATTEND Family Medicine
DX: J36 Peritonsillar abscess (principal); J03.01 Acute recurrent streptococcal tonsillitis; G47.36 Sleep related hypoventilation in conditions classified elsewhere; L27.0 Generalized skin eruption due to drugs and medicaments taken internally; E66.9 Obesity, unspecified; D72.821 Monocytosis (symptomatic); Z79.2 Long term (current) use of antibiotics; Z79.899 Other long term (current) drug therapy
CPT/HCPCS: 36415; 70491; 80047; 80048; 80053; 83735; 84145; 84703; 85025; 85027; 86140; 87486; 87581; 87633; 87798; 87880; 96365; 96366; 96375; 96376; 99284; J0295; J1100; J1885; Q9967

== ENCOUNTER 2023-09-11 10:14 | Day surgery (SDC) | payer OTHER ==
[~2023-09-11] VITALS: Ht 157.5 cm; Wt 93.7 kg
[~2023-09-11 10:14] MED LIST changes: +AMOX875T2 PO; +CLEO300C2 PO; +HYDR1CRE30 TOP; +IBUP-1022 PO; +PROBCAP14 PO; +SFHHYD1CR EXT
[2023-09-11] MEDS ORDERED: LR 1,000 ML IV SCH ×3 (10:35→14:00)
[2023-09-11] MEDS ORDERED: MIDAZOLAM INJ 2MG/2ML VIAL As Ordered ONE (11:50)
[2023-09-11] MEDS ORDERED: fentaNYL 100 MCG/2 ML INJECTION As Ordered ONE (11:51)
[2023-09-11] MEDS ORDERED: LIDOCAINE 2% 100MG/5ML SDV (FOR ANES.) As Ordered ONE (11:54)
[2023-09-11] MEDS ORDERED: ROCURONIUM BROMIDE 50MG/5ML VIAL As Ordered ONE (11:58)
[2023-09-11] MEDS ORDERED: ACETAMINOPHEN 1000MG 100ML IV BAG As Ordered ONE (12:40)
[2023-09-11] MEDS ORDERED: ONDANSETRON 4MG 2ML VIAL As Ordered ONE (12:45)
[2023-09-11] MEDS ORDERED: SUGAMMADEX SODIUM 500 MG/5 ML VIAL (BRIDION) As Ordered ONE (12:46)
[2023-09-11] MEDS ORDERED: propofoL 200 MG/20 ML VIAL As Ordered ONE (12:46)
[2023-09-11] MEDS ORDERED: LABETALOL 100MG/20ML VIAL As Ordered ONE (12:53)
[2023-09-11] MEDS ORDERED: fentaNYL 100 MCG/2 ML INJECTION IV PRN (13:05)
[2023-09-11] MEDS: oxyCODONE 5MG TAB PO PRN (13:24)
[2023-09-11] MEDS: HYDROMORPHONE HCL 0.5 MG/ 0.5 ML SYRINGE IV PRN (13:26)
[2023-09-11] MEDS: ONDANSETRON 4MG 2ML VIAL IV PRN (13:54)
[2023-09-11 13:57] VITALS: BP 104/69; TEMP 96.4; O2SAT 99
[2023-09-11] MEDS ORDERED: HYDROcodone/APAP LIQUID 7.5-325MG 15ML UDC (LORTAB ELIXIR) PO PRN (14:00)
== END 2023-09-11 14:30 | disposition home or self-care (01) ==
LOC: M SDC 10:14
PROVIDERS: ATTEND Otolaryngology
DX: J35.03 Chronic tonsillitis and adenoiditis (principal); L40.9 Psoriasis, unspecified; Z88.0 Allergy status to penicillin
CPT/HCPCS: 42821; 81025; 88302; J0131; J0665; J1100; J1170; J1920; J2250; J2405; J3010

== ENCOUNTER 2024-05-23 22:36 | Emergency (ER) | payer OTHER ==
[~2024-05-23] VITALS: Ht 160 cm; Wt 103.3 kg
[2024-05-24 07:20] VITALS: TEMP 97.6; O2SAT 94
[2024-05-24] MEDS: BOOSTRIX VACCINE (TETANUS/DIPHTH/ACEL. PERTUSSIS) 0.5ML SYR IM.IMMUN ONE (07:25)
[2024-05-24 07:29] VITALS: BP 150/92
== END 2024-05-24 07:30 | disposition home or self-care (01) ==
LOC: M ED 22:36
DX: S61.306A Unspecified open wound of right little finger with damage to nail, initial encounter (principal); W27.4XXA Contact with kitchen utensil, initial encounter; Y92.009 Unspecified place in unspecified non-institutional (private) residence as the place of occurrence of the external cause; Y93.9 Activity, unspecified; Y99.9 Unspecified external cause status; Z88.0 Allergy status to penicillin